=== PATIENT | male | born 1955 | race African-American/Black ===

== ENCOUNTER 2020-03-11 19:09 | Emergency (ER) | payer SELFPAY ==
[2020-03-11 19:39] LABS: #Eosinphils 0.8 thou/uL (0.0-0.7); #Lymphocytes 1.2 thou/uL (1.20-3.40); #Monocytes 0.4 thou/uL (0.11-0.59); #Neutrophils 3.5 thou/uL (1.40-6.50); %Basophils 0.7 % (0.0-1.0); %Eosinophils 14.1 % (0.0-10.0); %Lymphocytes 20.1 % (21.0-51.0); %Monocytes 6.2 % (0.0-10.0); %Neutrophils 58.9 % (42.0-75.0); Mean Corpuscular HGB CONC 32.6 g/dL (32.0-36.0); Mean Corpuscular Volume 98.2 fL (78.0-98.0); Mean Platelet Volume 8.1 fL (7.4-10.4); Platelet Count 203 thou/uL (130-400); Red Blood Cell (RBC) Count 4.68 mill/uL (4.70-6.10)
--- NOTE | 2020-03-11 19:41 | RAD ---
XR Foot Rt 3 View STANDARD History: Fall. Pain Comparison: None. Findings: Likely a bone island distal tibial metaphysis. Lisfranc interval appears been maintained. M oderate hallux valgus deformity. No acute displaced fracture or malalignment. Mild enthesopathic change of the dorsal talonavicular ligament. Impression: No acute displaced fracture or malalignment.
--- NOTE | 2020-03-11 19:42 | RAD ---
XR Ankle Rt 3 View STANDARD History: Fall from roof Comparison: None. Findings: Bone island distal tibial metaphysis. No acute displaced fracture or malalignment. Impression: No acute osseous abnormality.
[2020-03-11 19:43] LABS: PTT 33.2 sec (22.9-36.1); Prothrombin Time 13.7 sec (12.0-14.7)
--- NOTE | 2020-03-11 19:44 | CT ---
CT Brain WO Con History: Fall Comparison: None. Findings: No acute hemorrhage or infarct. No midline shift or mass effect. Ventricular size and extra -axial CSF spaces are normal. Calvarium is intact. Paranasal sinuses and mastoids are clear. Age-indeterminate left nasal bone frac ture. Impression: No acute posttraumatic intracranial sequela.
--- NOTE | 2020-03-11 19:47 | CT ---
CT Cervical Spine WO Con History: Fall from roof Comparison: None. 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 No acute fracture or malalignment. The occipital condyles are intact. Odontoid process is intact. No acute traumatic facet joint widening. Transverse processes are intact. Visualized ribs are intact. Moderate paraseptal emphysema within the lung apices. Spinous processes are intact. Impression: No acute fracture or malalignment of the cervical spine.
[2020-03-11 19:59] LABS: ALT (SGPT) 17 U/L (8-55); AST (SGOT) 30 U/L (5-34); Albumin 4.2 g/dL (3.4-4.8); Alkaline Phosphatase 93 U/L (40-110); Anion Gap 10 mmol/L (10-20); BUN (Urea Nitrogen) 19 mg/dL (8.4-25.7); Bilirubin, Total 0.5 mg/dL (0.2-1.2); Calc. Creatinine Clearance 0 mL/min (70-130); Calcium 9.9 mg/dL (7.8-10.44); Carbon Dioxide 28 mmol/L (23-31); Chloride 107 mmol/L (98-107); Estimated GFR-MDRD 79; Globulin 2.8 g/dL (2.4-3.5); Glucose 111 mg/dL (80-115); Lipase 39 U/L (8-78); Potassium 4.5 mmol/L (3.5-5.1); Sodium 140 mmol/L (136-145)
[2020-03-11] MEDS ORDERED: Morphine 4 MG/ML VIAL ONE (19:59)
--- NOTE | 2020-03-11 20:03 | CT ---
CT Chest Abd Pelvis W Con Limited CT thoracic spine with contrast Limited CT lumbosacral spine with contrast History: Fall from roof Comparison: None. Findings: Exam is limited due to the patient's arms at her side creating streak artifact. The sternum and manubrium are intact. Age-indeterminate right distal clavicular fracture not completely and field of view. Large calcific body within the left glenohumeral joint. Old right sixth rib fracture. No acute displaced rib fracture. Relatively high-grade emphysematous changes. No pneumothorax, pneumatocele, or pulmonary contusion. No acute aortic injury. No free intraperitoneal gas or fluid. The spleen, liver, kidneys are without acute injury. The adrena l glands are without acute injury. No thoracic or lumbar spine compression deformity. No posterior element injury. Subtle focus of sclerosis within the S2 vertebral body. Mild heterogeneous appearance of the medullar y cavity of the pelvis could be sequelae of obstructive pulmonary disease. No lumbar spine transverse process fracture. Moderate narrowing of the celiac trunk with poststenotic dilatation. Pancreatic duct upper limits of normal without visualized mass. No common bile duct dilatation. No mesenteric hematoma. No dilated loops of large or small bowel. Impression: 1. Age-indeterminate although favored to be old right distal clavicular injury. 2. Large bodies within the left glenohumeral joint, degenerative. 3. No acute traumatic abnormality within the chest, abdomen or pelvis.
== END 2020-03-11 23:56 | disposition home or self-care (01) ==
LOC: ERS 19:09
DX: S09.90XA Unspecified injury of head, initial encounter (principal); M54.6 Pain in thoracic spine; M54.5 Low back pain; M25.571 Pain in right ankle and joints of right foot; W18.30XA Fall on same level, unspecified, initial encounter
CPT/HCPCS: 36415; 70450; 71260; 72125; 74177; 80053; 83605; 83690; 85025; 85610; 85730; 86850; 86900; 86901; 93005; 96374; J2270

== ENCOUNTER 2020-11-07 14:04 | Observation (INO) | payer OTHER, SELFPAY ==
[~2020-11-07 14:04] MED LIST: Iopamidol 370 76% 100 ML VIAL ONE
[2020-11-07 14:50] LABS: #Basophils 0.1 thou/uL (0.0-0.2); #Eosinphils 0.3 thou/uL (0.0-0.7); #Lymphocytes 1.8 thou/uL (1.20-3.40); #Monocytes 0.4 thou/uL (0.11-0.59); #Neutrophils 2.1 thou/uL (1.40-6.50); %Basophils 1.9 % (0.0-1.0); %Eosinophils 6.3 % (0.0-10.0); %Monocytes 8.3 % (0.0-10.0); %Neutrophils 45.6 % (42.0-75.0); Hemoglobin 15.4 g/dL (14.0-18.0); Mean Corpuscular HGB CONC 32.4 g/dL (32.0-36.0); Mean Corpuscular Hemoglobin 32.4 pg (27.0-31.0); Mean Platelet Volume 8.3 fL (7.4-10.4); Platelet Count 209 thou/uL (130-400); Red Blood Cell (RBC) Count 4.73 mill/uL (4.70-6.10); White Blood Cell (WBC) Count 4.6 thou/uL (4.8-10.8)
[2020-11-07 15:10] LABS: ALT (SGPT) 16 U/L (8-55); AST (SGOT) 22 U/L (5-34); Albumin 4.2 g/dL (3.4-4.8); Alkaline Phosphatase 83 U/L (40-110); Anion Gap 11 mmol/L (10-20); Bilirubin, Total 0.6 mg/dL (0.2-1.2); Calc. Creatinine Clearance 0 mL/min (70-130); Calcium 10.4 mg/dL (7.8-10.44); Carbon Dioxide 29 mmol/L (23-31); Chloride 108 mmol/L (98-107); Globulin 3.6 g/dL (2.4-3.5); Glucose 80 mg/dL (80-115); Potassium 4.5 mmol/L (3.5-5.1); Protein, Total 7.8 g/dL (5.8-8.1); Sodium 143 mmol/L (136-145)
[2020-11-07 15:13] LABS: BUN (Urea Nitrogen) 15 mg/dL (8.4-25.7)
[2020-11-07] MEDS ORDERED: Aspirin Chewable 81 MG TAB ONE ×2 (16:17→16:18)
[2020-11-07 16:25] LABS: CK (CPK) 194 U/L (30-200); Lipase 46 U/L (8-78)
[2020-11-07] MEDS ORDERED: Morphine 4 MG/ML VIAL ONE (17:38)
[2020-11-07] MEDS ORDERED: Nitroglycerin 2% Ointment 1 INCH/1 GM Packet ONE (17:41)
[2020-11-07] MEDS ORDERED: Bacitracin 1 PK ONE (17:54)
[2020-11-07 18:25] LABS: Troponin I Less than 0.010 ng/mL (< 0.028)
[2020-11-07] MEDS ORDERED: Acetaminophen 325 MG TAB PO PRN ×2 (19:00→20:06)
[2020-11-07] MEDS ORDERED: Ondansetron ODT 4 MG TAB SL PRN (19:00)
[2020-11-07] MEDS ORDERED: Ondansetron PF 4 MG/2 ML Vial IVP PRN (19:00)
[2020-11-07 19:24] VITALS: BMI 19.0
[2020-11-07] MEDS ORDERED: Nitroglycerin 0.4 MG TAB (25 Tab Bottle) SL PRN (20:02)
[2020-11-07] MEDS ORDERED: Senokot S 8.6-50 MG TAB PO PRN (20:05)
[2020-11-07] MEDS ORDERED: Calcium Carbonate 500 MG ChewTAB PO PRN (20:05)
[2020-11-07] MEDS ORDERED: Cyclobenzaprine 10 MG TAB PO SCH (20:15)
[2020-11-07] MEDS: Acetaminophen 325 MG TAB PO SCH (20:18)
[2020-11-07] MEDS: Ketorolac Tromethamine 30 MG/ML VIAL IVP SCH (20:21)
[2020-11-07 20:52] LABS: Troponin I Less than 0.010 ng/mL (< 0.028)
[2020-11-07] MEDS ORDERED: Folic Acid 1 MG TAB PO SCH (21:00)
[2020-11-07] MEDS ORDERED: Cyanocobalamin (Vitamin B-12) 1,000 MCG TAB PO SCH (21:00)
[2020-11-07] MEDS ORDERED: Multivit, Therapeutic 1 TAB PO SCH (21:00)
[2020-11-07] MEDS ORDERED: Nitroglycerin 2% Ointment 1 INCH/1 GM Packet TOP SCH (23:59)
[2020-11-08 00:09] LABS: SARS-CoV-2 PCR by NAA Not Detected (NotDetected)
[2020-11-08] MEDS: Ketorolac Tromethamine 30 MG/ML VIAL IVP SCH (02:11)
[2020-11-08] MEDS: Acetaminophen 325 MG TAB PO SCH ×3 (09:00→16:14)
[2020-11-08] MEDS ORDERED: Aspirin Chewable 81 MG TAB PO SCH (09:00)
[2020-11-08] MEDS ORDERED: Gabapentin 100 MG CAP PO PRN (10:31)
[2020-11-08] MEDS ORDERED: Ketorolac Tromethamine 10 MG TAB PO SCH (10:45)
[2020-11-08 16:56] VITALS: BP 122/75; TEMP 98.6
== END 2020-11-08 18:28 | disposition home or self-care (01) ==
LOC: ERS 14:04 → 2SW 17:40
PROVIDERS: ADMIT Internal Medicine; ATTEND Internal Medicine
DX: R07.2 Precordial pain (principal); M54.5 Low back pain; M48.8X4 Other specified spondylopathies, thoracic region; J98.4 Other disorders of lung; M16.10 Unilateral primary osteoarthritis, unspecified hip; M48.061 Spinal stenosis, lumbar region without neurogenic claudication; M48.07 Spinal stenosis, lumbosacral region; D75.89 Other specified diseases of blood and blood-forming organs; N18.2 Chronic kidney disease, stage 2 (mild); Z87.891 Personal history of nicotine dependence; Z20.822 Contact with and (suspected) exposure to COVID-19
CPT/HCPCS: 36415; 71045; 71275; 72146; 72148; 80053; 82550; 83690; 83735; 84484; 85025; 93005; 96374; 96375; 96376; G0378; J1885; J2270; Q9967; U0003; U0005

== ENCOUNTER 2021-03-29 19:32 | Emergency (ER) | payer OTHER ==
[2021-03-29 20:23] LABS: #Basophils 0.1 thou/uL (0.0-0.2); #Eosinphils 0.2 thou/uL (0.0-0.7); #Lymphocytes 1.9 thou/uL (1.20-3.40); #Monocytes 0.4 thou/uL (0.11-0.59); #Neutrophils 2.1 thou/uL (1.40-6.50); %Basophils 1.9 % (0.0-1.0); %Eosinophils 4.5 % (0.0-10.0); %Lymphocytes 40.2 % (21.0-51.0); %Monocytes 8.5 % (0.0-10.0); %Neutrophils 44.9 % (42.0-75.0); Hemoglobin 14.5 g/dL (14.0-18.0); Mean Corpuscular HGB CONC 32.6 g/dL (32.0-36.0); Mean Corpuscular Hemoglobin 32.6 pg (27.0-31.0); Mean Corpuscular Volume 99.9 fL (78.0-98.0); Mean Platelet Volume 8.5 fL (7.4-10.4); Platelet Count 210 thou/uL (130-400); RBC Distribution Width 12.6 % (11.5-14.5); Red Blood Cell (RBC) Count 4.46 mill/uL (4.70-6.10); White Blood Cell (WBC) Count 4.7 thou/uL (4.8-10.8)
[2021-03-29 20:44] LABS: ALT (SGPT) 16 U/L (8-55); AST (SGOT) 26 U/L (5-34); Albumin 3.9 g/dL (3.4-4.8); Alkaline Phosphatase 81 U/L (40-110); Anion Gap 11 mmol/L (10-20); BUN (Urea Nitrogen) 21 mg/dL (8.4-25.7); Bilirubin, Total 0.3 mg/dL (0.2-1.2); CK (CPK) 283 U/L (30-200); Calc. Creatinine Clearance 0 mL/min (70-130); Calcium 10.1 mg/dL (7.8-10.44); Carbon Dioxide 28 mmol/L (23-31); Chloride 107 mmol/L (98-107); Globulin 3.2 g/dL (2.4-3.5); Glucose 106 mg/dL (80-115); Magnesium 1.9 mg/dL (1.6-2.6); Potassium 4.3 mmol/L (3.5-5.1); Protein, Total 7.1 g/dL (5.8-8.1); Sodium 142 mmol/L (136-145)
[2021-03-29 22:03] LABS: INR-International Normal Ratio 1.1; Prothrombin Time 13.8 sec (12.0-14.7)
[2021-03-29 22:04] LABS: PTT 32.6 sec (22.9-36.1)
== END 2021-03-29 20:46 | disposition home or self-care (01) ==
LOC: ERS 19:32
DX: T14.8XXA Other injury of unspecified body region, initial encounter (principal)
CPT/HCPCS: 36415; 80053; 82550; 83735; 85025; 85610; 85730; 99283